=== PATIENT | female | born 1950 | race Hispanic/Latino ===

== ENCOUNTER 2017-02-15 11:30 | Day surgery (SDC) | payer MEDICARE ==
[~2017-02-15] VITALS: Ht 160 cm; Wt 60.0 kg
[~2017-02-15 11:30] MED LIST: ALBU8.5H2 INHALATION; ALEN70TA51 PO; ASPI-973 PO; AZEL137S11 NS; CALC-51 PO; CLON2TAB PO; CYAN500 PO; DEXL60CA5 PO; DULO30CA50 PO; ESOM40CA41 PO; FLUT16SP NS; HYDR2TAB28 PO; LEVO50TA6 PO; LEVO5TAB13 PO; LISI-610 PO; Lactated Ringer's 1,000 ML IV ONE; METH2.5T PO; RANI300C PO; SENN8.6C6 PO; SUCR1TAB PO; TRAZ-115 PO
[2017-02-15] MEDS ORDERED: Propofol 10,000 mCg/mL 20 mL Inj ONE (11:31)
[2017-02-15 11:42] VITALS: BP 144/69; PULSE 58; RESP 16; O2SAT 100
[2017-02-15] MEDS ORDERED: Lactated Ringer's 1,000 ML IV SCH (12:05)
[2017-02-15] MEDS ORDERED: MetoCLOpramide 5 mg/mL 2 mL Inj IVPUSH PRN (12:05)
[2017-02-15] MEDS ORDERED: Ondansetron 2 mg/mL 2 mL Inj IVPUSH PRN (12:05)
[2017-02-15 12:20] VITALS: BP 111/64; PULSE 60; RESP 14; O2SAT 94
[2017-02-15 12:30] VITALS: BP 112/61; PULSE 56; RESP 14; O2SAT 98
[2017-02-15 12:40] VITALS: BP 141/68; PULSE 57; RESP 16; O2SAT 100
--- NOTE | 2017-02-15 15:20 | ENDO ---
[address] [address] ENDOSCOPY PROCEDURE PATIENT: NANDO GALLEGOS : 1950 MR#: [id number] ADMIT: 02/15/2017 JOB ID: [id number] TYPE OF OPERATION: Esophagogastroduodenoscopy, biopsy. PREOPERATIVE DIAGNOSIS(ES): Gastroesophageal reflux disease. POSTOPERATIVE DIAGNOSIS(ES): Status Dany fundoplication. ANESTHESIA: Monitored anesthesia care. COMPLICATION: None. BLOOD LOSS: Minimal. DESCRIPTION OF PROCEDURE: After risks and benefits explained to patient, informed consent was obtained. After anesthesia administered, upper endoscope was inserted into the mouth, intubated the esophagus, stomach, second portion of duodenum. Mucosa carefully examined. After the procedure done, scope withdrawn, procedure terminated. FINDINGS: Upon inspection of esophagus, esophagus was normal without masses, ulcers, or lesions. Z-line located at 35 cm from incisors. Upon entering the stomach, the stomach also appeared normal without masses, ulcers, or lesions. Retroflexion showed a Dany fundoplication that was intact with a wrap. Duodenal bulb, first and second portion normal. Biopsies taken of the antrum, body of stomach and distal esophagus. IMPRESSION: Status post Dany fundoplication. RECOMMENDATIONS: Await pathology results. Follow up with GI clinic as needed.
--- NOTE | 2017-02-15 16:48 | PCM.ANEP1 ---
Post Anesthesia Phase 1 PACU Phase 1 Assessment Vital Signs Vital Signs Date Time Temp Pulse Resp B/P Pulse Ox O2 Delivery O2 Flow Rate FiO2 02/15/17 12:40 57 16 141/68 100 Room Air 02/15/17 12:30 56 14 112/61 98 Room Air 02/15/17 12:20 60 14 111/64 94 Room Air 02/15/17 11:42 36.0 58 16 144/69 100 Room Air Anesthetic Administered: MAC Level of Alertness: Awake, talking LAMAS's with Equal Strength: Yes Pain: No Nausea or Vomiting: No Cardiovascular Function and Hy: No Oxygen Delivery: Simple Mask Lungs: Clear to Auscultation, Normal Air Movement Dermatome Level: Full Sensation Complications: No Follow up Care: No Braydon Merrill MD Feb 15, 2017 16:48
--- NOTE | 2017-02-15 16:48 | PCM.HPANE ---
Patient Data Surgeon Admitting Provider: Attending Provider:Davie Prasad MD Primary Care Physician:Bonny Cox MD Other Provider:[place] Anesthesia Reason for Visit GERD Ht/WT & BMI Body Mass Index Allergies Coded Allergies: hydrocodone (Verified Allergy, Severe, NAUSEA,ITCHING,SWELLING, 02/03/16) iodine (Verified Allergy, Severe, INSIDE AND OUT, RASH HAND SWOLLEN, ) omeprazole (Verified Allergy, Severe, RASH & NO EFFECT ON GERD, 02/03/16) Sulfa (Sulfonamide Antibiotics) (Verified Allergy, Intermediate, itching and hives, 12/12/15) codeine (Verified Allergy, Intermediate, nausea and agitation, 12/12/15) pantoprazole (Verified Allergy, Unknown, UNKNOWN, 12/12/15) prazosin (Verified Allergy, Unknown, UNKNOWN, 12/12/15) flunisolide (Verified Adverse Reaction, Severe, HEADACHE, 12/12/15) gabapentin (Verified Adverse Reaction, Severe, N&V, 12/12/15) sucralfate (Verified Adverse Reaction, Severe, NAUSEA, 12/12/15) tramadol (Verified Adverse Reaction, Severe, SOMNOLENCE, 12/12/15) trazodone (Verified Adverse Reaction, Severe, SOMNOLENCE, 02/03/16) PT IS CURRENTLY TAKING THE TRAZADONE - MAKES VERY SLEEPY Past Anesthesia History Anesthesia History: Denies:: Abnormal Airway (HX CHRONIC LARYNGITIS), Anesthesia Reactions, Difficult Intubation, Fam Anesthesia Reaction, Fam Malignant Hypertherm, Malignant Hyperthermia Diabetes History Hx Diabetes?: No MRSA MRSA: No Medications Blood Thinner: Aspirin Active Scripts Lisinopril (Zestril)10 Mg Pwpugb45 Mg PO HS 30 Days Prov:Gurpreet Miller MD 09/29/15 Reported Medications Hydromorphone 2 Mg Tablet2 Mg PO BID PRN Pain Ref 0 02/14/17 Duloxetine 30 Mg Capsule.dr30 Mg PO DAILY Ref 0 02/14/17 Azelastine HCl 137 Mcg/0.137 Ml Baker.pump2 Sprays NS BID 02/14/17 Aspirin 81 Mg Zjcuhe45 Mg PO DAILY Ref 0 02/14/17 Albuterol HFA (Proair HFA)8.5 Gm Hfa.aer.ad2 Puffs INHALATION Q4H #1 INHALER 12/12/15 Trazodone 50 Mg Btmsua92 Mg PO HS PRN Insomnia Ref 0 09/29/15 Sennosides (Senna)8.6 Mg Capsule2 Tab PO HS PRN For Constipation 08/11/15 Methotrexate Sodium (Methotrexate)2.5 Mg Dufisl27 Mg PO WEEKLY 08/11/15 Levothyroxine 50 Mcg Qvowph05 Mcg PO DAILY Ref 0 08/11/15 Levocetirizine Dihydrochloride 5 Mg Tablet5 Mg PO evening PRN allergies 08/11/15 Clonazepam (Klonopin)2 Mg Tablet0.5 Tab PO BID Ref 0 08/11/15 Fluticasone Propionate (Fluticasone Propionate Nasal)16 Gm Baker.susp1 Baker NS Q2DAY #16 GM Ref 0 08/11/15 Cyanocobalamin (Vitamin B12)500 Mcg Tablet2,000 Mcg PO DAILY 08/11/15 Calcium Carbonate/Vitamin D3 (Calcium 500 + Vit D 400 Tablet)1 Each Tablet1 Each PO DAILY 08/11/15 Discontinued Reported Medications Sucralfate 1 Gm Tablet1 Gm PO QID 30 Days Ref 0 02/14/17 Ranitidine 300 Mg Zdgqell973 Mg PO BID Ref 0 02/14/17 Dexlansoprazole ER (Dexilant)60 Mg Bzjmaxn98 Mg PO DAILY 30 Days Ref 0 02/14/17 Esomeprazole Magnesium (Nexium)40 Mg Capsule.dr40 Mg PO BID Ref 0 08/11/15 Alendronate (Binosto)70 Mg Tablet.eff70 Mg PO WEEKLY 08/11/15 Metoclopramide 10 Mg Omuqof95 Mg PO TIDAC PRN For Nausea Ref 0 09/29/15 Hydroxyzine Pamoate (HydrOXYzine Pamoate)25 Mg Oemzdin40 Mg PO Q4-6H PRN For Nausea Ref 0 09/29/15 Gabapentin (Neurontin)300 Mg Zadshgm576 Mg PO HS 30 Days Ref 0 09/29/15 Oxycodone HCl/Acetaminophen (Endocet 10-325 mg Tablet)1 Each Tablet1-2 Each PO Q4-6H PAIN 09/29/15 Escitalopram Oxalate 20 Mg Xcbgmf13 Mg PO DAILY MOOD 30 Days Ref 0 08/11/15 Benzonatate 200 Mg Mmgppfw036 Mg PO TID PRN For Cough 08/11/15 Discontinued Scripts [Al Hydrox/Mg Hydrox/Simeth] (Maalox Plus)30 ML SUSP No Conflict Check30 Ml PO Q6 PRN For Dyspepsia or Heartburn 30 Days Prov:Gurpreet Miller MD 09/29/15 History History of ENT Problems?: Yes HEENT History: Positive for:: Cataracts (S/P EXTRACTIONS) Dysphagia Hearing Problem Sinus Problem (allergies, s/p sinus surgery) TMJ Denies:: Abnormal Airway (HX CHRONIC LARYNGITIS) Difficult Intubation Hx of Heart Problems?: Yes Cardiovascular History: Positive for:: Chest Pain (2012,2014 ATYPICAL TESTING WNL) Congestive Heart Failure Heart Murmur ("SMALL" REPORTED BY PT ECHO 08/2015) Hypertension Denies:: Cardiac Surgery Edema Irregular Heartbeat Pacemaker Thrombophlebitis Valvular Heart Disease Hx of Respiratory Problem?: Yes Respiratory History: Positive for:: Asthma Cough Dyspnea (MCLEOD) Pneumonia (Long time ago) Use of C-PAP Machine (KARIN+ CANNOT TOLERATE CPAP) Denies:: COPD Chest Surgery Emphysema Hemoptysis Tuberculosis Hx Neurologic Problems?: Yes Neurological History: Denies:: Alzheimer's Disease CVA Dementia Dizziness Headaches Parkinson's Disease Seizures Hx of GI Problems?: Yes Gastrointestinal History: Positive for:: Gastroesphageal Reflux (hx pud) Heartburn Hiatal Hernia (s/p adwoa fundoplication) Denies:: Diverticulitis Gastrointestinal Bleeding Hepatitis Rectal Bleeding Hx of Problems?: Yes Genitourinary History: Positive for:: Kidney Stones (HX OF RECURRENT STONES) Urinary Tract Infection (HX RECURRENT PYELONEPHRITIS) Female Hx: Denies:: Currently Problems with Breasts? Skin History: Denies:: History Skin Disorders? (RASHES) Pressure Ulcers Hx Musculoskeletal Problems?: Yes Musculoskeletal History: Positive for:: Degenerative Joint Joint Replacement (S/P RT TKA) Musculoskeletal Trauma (S/P RT SHOULDER RPR,KNEE SCOPE) Denies:: Back Injury (C/OF NECK * LOWER BACK PAIN) Hx of Psycho/Social Problems?: Yes Psycho Social History: Positive for:: Anxiety (PTSD) Hx Depression (HX OF ECT'S FOR DEPRESSION) Denies:: Bipolar Disorder Suicide Attempt Hx Surgeries?: Yes (GALL BLADDER, , R KNEE REPAIR, SINUS, lap adwoa, R shoulder) Hx Any Other Health Problems?: Yes Other History: Positive for:: Hospitalization Thyroid Disease Denies:: Cancer Endocrine Disease History Blood Transfusions: Denies:: Blood Transfusions Hx Diabetes: No Hx Alcohol Use: NoHx Substance Use: No Smoking Status: Never Smoker Have You Smoked inLast 12 mo: No Stop/Bang Risk Assessment Category Category 1A: Patient has history of documented sleep apnea, and HAS NOT received any narcotic, sedative or anesthesia administration during this stay. Category 1B: Patient has history of documented sleep apnea, and HAS received any narcotic , sedative or anesthesia administration during this stay Category 2: Patient has SUSPECTED Obstructive Sleep Apnea, and HAS received any narcotic , sedative or anesthesia administration during this stay. Category 3: Patient has SUSPECTED Obstructive Sleep Apnea and HAS NOT received narcotic, sedative or anesthesia administration during this stay. Category 4: Outpatient in Procedural Areas with known sleep apnea or who screen positive for High Risk via the STOP/BANG questionnaire. Exam Exam General Appearance: Alert, Oriented X3, Cooperative, No Acute Distress HEENT/AIRWAY: MP 2, Neck Movement (FROM), Mouth Opening (3 FBMO) Lungs: Clear to Auscultation, Normal Air Movement Heart: Exam Unremarkable, Regular Rate/Rhythm, No Murmurs/Rubs/Gallops Plan Impression Patient chart reviewed, patient interviewed and anesthestic plan with risks, benefits, and alternatives discussed, and informed consent obtained. NPO Status: 12/16 at 2100 ASA Physical Status: ASA2 Mod Systemic Disease Anesthetic Plan: MAC Bene/Risks/Altern/Consents: Yes HP Complete Prior to Induction: Yes Braydon Merrill MD Feb 15, 2017 07:37
--- NOTE | 2017-02-17 19:07 | PATH ---
SURGICAL PATHOLOGY Attending Physician:Davie Prasad MD CASE STATUS: Signed Out PATIENT NAME: NANDO GALLEGOS PID: [id number] : 1950 DATE COLLECTED:02/15/2017 19:48 SPECIMEN: 1: Stomach, Antrum, Biopsy 2: Gastric, Biopsy 3: Esophagus, Biopsy CLINICAL HISTORY: 1). ANTRUM BIOPSY 2). GASTRIC BODY BIOPSY 3). DISTAL ESOPHAGUS BIOPSY FINAL DIAGNOSIS: 1. Antrum Biopsy: Antral and body-type mucosa with mild chronic gastritis. Negative for H. pylori organisms by immunohistochemistry studies. Negative for intestinal metaplasia, dysplasia, and malignancy. 2. Gastric Biopsy: Body-type mucosa with mild chronic gastritis. Negative for H. pylori organisms by immunohistochemistry studies. Negative for intestinal metaplasia, dysplasia, and malignancy. 3. Distal Esophagus Biopsy: Squamous mucosa with focal hyperplastic changes. No columnar epithelium identified for evaluation. Negative for squamous dysplasia and malignancy. No increased inflammatory cells identified. ICD10: K29.7 GROSS DESCRIPTION: The specimen is received in three formalin filled containers labeled with the patient's name. 1). The specimen is sublabeled "antrum" and consists of 2 portions of tissue which aggregate to 0.3 x 0.3 x 0.2 CM. The specimen is entirely submitted in cassettes 1A. 2). The specimen is sublabeled "gastric body" and consists of 2 portions of tissue which aggregate to 0.3 x 0.3 x 0.2 CM. The specimen is entirely submitted in cassette 2A. 3). The specimen is sublabeled "distal esophagus" and consists of 2 portions of tissue which aggregate to 0.3 x 0.3 x 0.2 CM. The specimen is entirely submitted in cassette 3A. 02/15/2017 [facility] MICRO DESCRIPTION: IMMUNOHISTOCHEMISTRY: Block 1A: H. pylori: Negative. Block 2A: H. pylori: Negative. * This test was developed and its performance characteristics determined by [facility]. It has not been cleared or approved by the U.S. Food and Drug Administration. The FDA has determined that such clearance or approval is not necessary. This test is used for clinical purposes. It should not be regarded as investigational or for research. ICD-9 CODES: CPT CODES: 1: 76839, 75096 2: 50288, 93940 3: 46307 Electronically Signed Out Krupa Levin MD [facility] [address], [place] [address] Technical component performed at [facility], [facility] [address], [place], [address]
== END 2017-02-15 23:59 | disposition home or self-care (01) ==
LOC: END 11:30
PROVIDERS: ATTEND Internal Medicine Gastroenterology
DX: K29.50 Unspecified chronic gastritis without bleeding (principal); K21.9 Gastro-esophageal reflux disease without esophagitis; I50.9 Heart failure, unspecified; I10 Essential (primary) hypertension; E78.5 Hyperlipidemia, unspecified; M06.9 Rheumatoid arthritis, unspecified; F32.9 Major depressive disorder, single episode, unspecified; F43.10 Post-traumatic stress disorder, unspecified; M25.519 Pain in unspecified shoulder; J45.909 Unspecified asthma, uncomplicated; G47.33 Obstructive sleep apnea (adult) (pediatric); K44.9 Diaphragmatic hernia without obstruction or gangrene; E03.9 Hypothyroidism, unspecified; M17.9 Osteoarthritis of knee, unspecified; Z79.891 Long term (current) use of opiate analgesic
CPT/HCPCS: 43239; 88305; 88342; J7120